=== PATIENT | male | born 1995 | race African-American/Black ===

== ENCOUNTER 2022-04-13 13:15 | Emergency (ER) | payer SELFPAY ==
--- NOTE | 2022-04-13 13:39 | EDPHYS ---
Physician Documentation [facility] Name: Carlos Rascon Age: 27 yrs Sex: Male : 1995 Arrival Date: 04/13/2022 Time: 13:24 Bed Waiting Private MD: ED Physician Abdulaziz Buckner HPI: 04/13 13:35 This 27 yrs old Black Male presents to ER via Ambulatory with complaints of Insect Bite.[email or web address] 13:35 Onset: The symptoms/episode began/occurred 1 week(s) ago. 27-year-old male presents jh7 that an insect possibly bit his right shoulder/scapula 1 week ago, forming an abscess. Reports that he had an abscess that burst this morning. Denies fever or tenderness.. Historical: - Allergies: 13:33 No Known Allergies; jh5 - PMHx: 13:33 None; jh5 - PSHx: 13:33 None; jh5 - Immunization history:: Adult Immunizations up to date. - Social history:: Smoking status: Patient denies any tobacco usage or history of. ROS: 13:35 Constitutional: Negative for fever, chills, and weight loss, Cardiovascular: Negative jh7 for chest pain, palpitations, and edema, Respiratory: Negative for shortness of breath, cough, wheezing, and pleuritic chest pain, Back: Negative for injury and pain, MS/Extremity: Negative for injury and deformity, Neuro: Negative for headache, weakness, numbness, tingling, and seizure. 13:35 Skin: Positive for abscess. 13:35 All other systems are negative. Exam: 13:35 Constitutional: This is a well developed, well nourished patient who is awake, alert, jh7 and in no acute distress. Head/Face: Normocephalic, atraumatic. Eyes: Pupils equal round and reactive to light, extra-ocular motions intact. Lids and lashes normal. Conjunctiva and sclera are non-icteric and not injected. Cornea within normal limits. Periorbital areas with no swelling, redness, or edema. Cardiovascular: Regular rate and rhythm with a normal S1 and S2. No gallops, murmurs, or rubs. Normal PMI, no JVD. No pulse deficits. Respiratory: Lungs have equal breath sounds bilaterally, clear to auscultation and percussion. No rales, rhonchi or wheezes noted. No increased work of breathing, no retractions or nasal flaring. MS/ Extremity: Pulses equal, no cyanosis. Neurovascular intact. Full, normal range of motion. Neuro: Awake and alert, GCS 15, oriented to person, place, time, and situation. Motor strength 5/5 in all extremities. Sensory grossly intact. Normal gait. 13:35 Skin: abscess, that is small, approximately 2 cm(s), of the Right scapula, with drainage, that is bloody, that is purulent, No induration, tenderness to palpation, or surrounding cellulitis. Abscess is actively draining.. Vital Signs: 13:31 BP 147 / 97; Pulse 72; Resp 16; Temp 98.6; Pulse Ox 100% ; Weight 63.5 kg; Height 5 ft. jh5 7 in. (170.18 cm); Pain 0/10; 13:31 Body Mass Index 21.93 (63.50 kg, 170.18 cm) jh5 MDM: 13:32 Patient medically screened. 7 13:40 Differential diagnosis: Abscess. Data reviewed: vital signs, nurses notes. I considered jh7 the following discharge prescriptions or medication management in the emergency department Prescribed antibiotics. Counseling: I had a detailed discussion with the patient and/or guardian regarding: the historical points, exam findings, and any diagnostic results supporting the discharge/admit diagnosis, to return to the emergency department if symptoms worsen or persist or if there are any questions or concerns that arise at home. ED course: Patient reports that abscess drained a significant amount of purulent drainage at home this morning. Abscess was openly draining in triage and was able to express the remainder of purulent drainage. There is no induration or surrounding cellulitis present. Prescribed the patient Bactrim and mupirocin. An I\T\D was not indicated at this time due to abscess already being open.. Administered Medications: No medications were administered Disposition: 18:55 Co-signature as Attending Physician, Abdulaziz Buckner MD I reviewed the patient's care rn provided by the Advanced Practice Provider and agree with the diagnosis and treatment plan. Disposition Summary: 04/13/22 13:39 Discharge Ordered Location: Home [facility] Problem: new [facility] Symptoms: are unchanged [facility] Condition: Stable [facility] Diagnosis - Cutaneous abscess of back [any part, except buttock] jh7 Followup: jh7 - With: Private Physician - When: 2 - 3 days - Reason: Recheck today's complaints Discharge Instructions: - Discharge Summary Sheet [facility] - Skin Abscess [facility] Forms: - Medication Reconciliation Form [facility] - Work release form bd - Thank You Letter [facility] - Antibiotic Education [facility] Prescriptions: - mupirocin 2 % Topical ointment - apply 1 application by TOPICAL route 3 times per day for 7 days; 1 tube; [facility] Refills: 0, Product Selection Permitted - Bactrim DS 800-160 mg Oral Tablet - take 1 tablet by ORAL route every 12 hours for 10 days; 20 tablet; Refills: 0, jh7 Product Selection Permitted Signatures: Abdulaziz Buckner MD MD rn DylonJoanne RN RN [facility] Cecelia Lopez FNP [employer] [facility]
--- NOTE | 2022-04-13 13:39 | ER ---
Nurse's Notes [facility] Name: Carlos Rascon Age: 27 yrs Sex: Male : 1995 Arrival Date: 04/13/2022 Time: 13:24 Bed Waiting [facility] MD: Diagnosis: Cutaneous abscess of back [any part, except buttock] Presentation: 04/13 13:31 Chief complaint: Patient states: spider bite right upper back x1 week; busted today and [facility] bleeding, i just wanna have it checked out. I havent had any fevers. Coronavirus screen: Vaccine status: Patient reports being unvaccinated. Client denies travel out of the [place] in the last 14 days. Ebola Screen: Patient negative for fever greater than or equal to 101.5 degrees Fahrenheit, and additional compatible Ebola Virus Disease symptoms Patient denies exposure to infectious person. Patient denies travel to an Ebola-affected area in the 21 days before illness onset. Initial Sepsis Screen: Does the patient meet any 2 criteria? No. Patient's initial sepsis screen is negative. Does the patient have a suspected source of infection? No. Patient's initial sepsis screen is negative. Risk Assessment: Do you want to hurt yourself or someone else? Patient reports no desire to harm self or others. Onset of symptoms was April 08, 2022. 13:31 Method Of Arrival: Ambulatory [facility] 13:31 Acuity: ELIAS 4 5 Triage Assessment: 13:33 Bite description: bite sustained to right upper back by a spider, animal information: [facility] vaccination(s) is not applicable. General: Appears in no apparent distress. Behavior is calm, cooperative, appropriate for age. Pain: Denies pain. Historical: - Allergies: 13:33 No Known Allergies; 5 - PMHx: 13:33 None; 5 - PSHx: 13:33 None; [facility] - Immunization history:: Adult Immunizations up to date. - Social history:: Smoking status: Patient denies any tobacco usage or history of. Vital Signs: 13:31 BP 147 / 97; Pulse 72; Resp 16; Temp 98.6; Pulse Ox 100% ; Weight 63.5 kg; Height 5 ft. [facility] 7 in. (170.18 cm); Pain 0/10; 13:31 Body Mass Index 21.93 (63.50 kg, 170.18 cm) 5 ED Course: 13:24 Patient arrived in ED. as 13:31 Arm band placed on right wrist. 5 13:32 Cecelia Lopez FNP is [facility]. jh7 13:32 Abdulaziz Buckner MD is Attending Physician. jh7 13:33 Triage completed. 5 Administered Medications: No medications were administered Outcome: 13:39 Discharge ordered by MD. jh7 13:44 Discharged to home ambulatory. 5 13:44 Condition: good 13:44 Discharge instructions given to patient. 13:44 Instructed on discharge instructions, follow up and referral plans. medication usage, safety practices, Demonstrated understanding of instructions, follow-up care, medications, Prescriptions given X 2. 13:44 Patient left the ED. [facility] Signatures: Ana Flores Jessica, RN RN 5 Cecelia Lopez FNP FNP [facility] Corrections: (The following items were deleted from the chart) 13:34 13:31 BP 139 / 105; Pulse 72bpm; Resp 16bpm; Pulse Ox 100%; Temp 98.6F; 63.5 kg; Height [facility] 5 ft. 7 in.; BMI: 21.9; Pain 0/10; [facility]
[2022-04-13 14:02] VITALS: BP 147/97; TEMP 98.6; O2SAT 100
== END 2022-04-13 13:44 | disposition home or self-care (01) ==
LOC: ER 13:15
DX: L02.212 Cutaneous abscess of back [any part, except buttock and flank] (principal)
CPT/HCPCS: 99282